=== PATIENT | female | born 1980 | race Caucasian/White ===

== ENCOUNTER 2017-12-18 10:23 | Emergency (ER) | payer SELFPAY ==
[2017-12-18 10:55] LABS: Bilirubin Negative (Negative); Blood, Urine Trace (Negative); Clarity Cloudy (Clear); Glucose, Urine (Dipstick) Negative (Negative); Leukocyte Trace (Negative); Nitrite Negative (Negative); Protein, Urine (Dipstick) Negative (Neg-Trace); Urobilinogen 0.2 mg/dL (0.2-1.0)
[2017-12-18 10:56] LABS: Pregnancy Test - Urine (BHCG) Negative (Negative); Pregu Control Background? CLEAR/WHITE (CLR/WHITE); Pregu Control Bar Appear? YES (CONTROL BAR); Specific Gravity 1.005 (1.002-1.036); Specific Gravity, Urine 1.005 (1.002-1.036)
[2017-12-18 11:01] LABS: Bacteria/HPF 1+ HPF (None Seen); RBC/HPF 0-3 HPF (0-3)
== END 2017-12-18 11:40 | disposition home or self-care (01) ==
LOC: MADERS 10:23
DX: K43.9 Ventral hernia without obstruction or gangrene (principal)
CPT/HCPCS: 81003; 81015; 81025; 87086; 99284

== ENCOUNTER 2018-05-29 18:09 | Emergency (ER) | payer SELFPAY | END 2018-05-29 19:12 | disposition home or self-care (01) | LOC: MADERS 18:09 | DX: R11.10 Vomiting, unspecified (principal); K02.9 Dental caries, unspecified | CPT/HCPCS: 99283 ==

== ENCOUNTER 2018-07-16 10:43 | Emergency (ER) | payer SELFPAY ==
--- NOTE | 2018-07-16 11:36 | RAD ---
Chest one view HISTORY: Chest pain. FINDINGS: Cardiac silhouette and pulmonary vasculature are unremarkable. Mediastinum is midline. No c onfluent airspace consolidation or evidence of pneumothorax. pvc monitor leads overlie the chest. IMPRESSION: No active cardiopulmonary abnormalities are demonstrated.
[2018-07-16 11:38] LABS: #Basophils 0.1 thou/uL (0.0-0.2); #Eosinphils 0.1 thou/uL (0.0-0.7); #Lymphocytes 1.9 thou/uL (1.20-3.40); #Monocytes 0.5 thou/uL (0.11-0.59); #Neutrophils 6.5 thou/uL (1.40-6.50); %Basophils 0.6 % (0.0-1.0); %Eosinophils 1.2 % (0.0-10.0); %Lymphocytes 20.9 % (21.0-51.0); %Monocytes 5.1 % (0.0-10.0); %Neutrophils 72.2 % (42.0-75.0); Hemoglobin 13.7 g/dL (12.0-16.0); Mean Corpuscular HGB CONC 32.3 g/dL (32.0-36.0); Mean Corpuscular Volume 89.7 fL (78.0-98.0); Platelet Count 296 thou/uL (130-400); RBC Distribution Width 11.9 % (11.5-14.5); Red Blood Cell (RBC) Count 4.74 mill/uL (4.20-5.40); White Blood Cell (WBC) Count 8.9 thou/uL (4.8-10.8)
[2018-07-16 12:04] LABS: ALT (SGPT) 12 U/L (8-55); AST (SGOT) 15 U/L (5-34); Albumin 4.4 g/dL (3.5-5.0); Alkaline Phosphatase 62 U/L (40-150); Anion Gap 11 mmol/L (10-20); BUN (Urea Nitrogen) 13 mg/dL (7.0-18.7); Bilirubin, Total 0.4 mg/dL (0.2-1.2); Calc. Creatinine Clearance 0 mL/min (70-130); Calcium 9.8 mg/dL (7.8-10.44); Carbon Dioxide 26 mmol/L (22-29); Chloride 108 mmol/L (98-107); Estimated GFR-MDRD 72; Globulin 2.6 g/dL (2.4-3.5); Glucose 81 mg/dL (70-105); Potassium 3.9 mmol/L (3.5-5.1); Sodium 141 mmol/L (136-145)
[2018-07-16] MEDS ORDERED: Aspirin Chewable 81 MG TAB ONE ×3 (12:17→12:22)
== END 2018-07-16 13:00 | disposition home or self-care (01) ==
LOC: MADERS 10:43
DX: R07.2 Precordial pain (principal); Z87.891 Personal history of nicotine dependence
CPT/HCPCS: 71045; 80053; 83880; 84484; 85025; 93005

== ENCOUNTER 2018-10-21 20:07 | Emergency (ER) | payer SELFPAY ==
[2018-10-21] MEDS ORDERED: Penicillin V Potassium 250 MG TAB ONE ×2 (20:33)
== END 2018-10-21 20:40 | disposition home or self-care (01) ==
LOC: MADERS 20:07
DX: K02.9 Dental caries, unspecified (principal); Z87.891 Personal history of nicotine dependence
CPT/HCPCS: 99282

== ENCOUNTER 2018-10-23 22:43 | Emergency (ER) | payer SELFPAY ==
[2018-10-23] MEDS ORDERED: Bupivacaine PF 0.5% 30 ML VIAL ONE (22:53)
== END 2018-10-23 23:15 | disposition home or self-care (01) ==
LOC: MADERS 22:43
DX: K04.7 Periapical abscess without sinus (principal); L03.211 Cellulitis of face; Z87.891 Personal history of nicotine dependence
CPT/HCPCS: 64400; S0020

== ENCOUNTER 2018-10-24 13:19 | Emergency (ER) | payer SELFPAY | END 2018-10-24 13:49 | disposition home or self-care (01) | LOC: MADERS 13:19 | DX: K04.7 Periapical abscess without sinus (principal); K02.9 Dental caries, unspecified; Z87.891 Personal history of nicotine dependence | CPT/HCPCS: 99281 ==

== ENCOUNTER 2019-01-11 19:30 | Emergency (ER) | payer SELFPAY ==
[2019-01-11] MEDS ORDERED: Acetaminophen 500 MG TAB ONE (19:58)
[2019-01-11] MEDS ORDERED: Ibuprofen 800 MG TAB ONE (19:58)
[2019-01-11] MEDS ORDERED: Penicillin V Potassium 250 MG TAB ONE (19:59)
== END 2019-01-11 20:09 | disposition home or self-care (01) ==
LOC: MADERS 19:30
DX: H66.93 Otitis media, unspecified, bilateral (principal); B97.4 Respiratory syncytial virus as the cause of diseases classified elsewhere
CPT/HCPCS: 99282

== ENCOUNTER 2019-04-25 14:08 | Emergency (ER) | payer SELFPAY | END 2019-04-25 15:25 | disposition home or self-care (01) | LOC: MADERS 14:08 | DX: K04.7 Periapical abscess without sinus (principal); K02.9 Dental caries, unspecified; F17.290 Nicotine dependence, other tobacco product, uncomplicated | CPT/HCPCS: 87804; 99283 ==

== ENCOUNTER 2021-08-25 14:25 | Emergency (ER) | payer SELFPAY | END 2021-08-25 15:20 | disposition home or self-care (01) | LOC: MADERS 14:25 | DX: M54.6 Pain in thoracic spine (principal); F17.290 Nicotine dependence, other tobacco product, uncomplicated | CPT/HCPCS: 93005 ==

== ENCOUNTER 2022-01-05 12:41 | Emergency (ER) | payer OTHER, SELFPAY ==
[2022-01-05] MEDS ORDERED: Dexamethasone 10 MG/ML VIAL ONE (14:04)
== END 2022-01-05 14:15 | disposition home or self-care (01) ==
LOC: MADERS 12:41
DX: S16.1XXA Strain of muscle, fascia and tendon at neck level, initial encounter (principal); F17.290 Nicotine dependence, other tobacco product, uncomplicated; Y04.0XXA Assault by unarmed brawl or fight, initial encounter
CPT/HCPCS: 96372; 99283; J1100

== ENCOUNTER 2022-05-25 15:17 | Emergency (ER) | payer OTHER ==
[2022-05-25] MEDS ORDERED: Albuterol 200 PUFF (6.7GM INHALER) ONE (16:08)
== END 2022-05-25 16:35 | disposition home or self-care (01) ==
LOC: MADERS 15:17
DX: H60.92 Unspecified otitis externa, left ear (principal); J20.9 Acute bronchitis, unspecified; H65.92 Unspecified nonsuppurative otitis media, left ear; Z87.891 Personal history of nicotine dependence
CPT/HCPCS: 71046

== ENCOUNTER 2023-10-10 07:50 | Emergency (ER) | payer OTHER, SELFPAY ==
[2023-10-10] MEDS ORDERED: Dexamethasone 10 MG/ML VIAL ONE (08:41)
[2023-10-10 09:07] LABS: Bilirubin Negative (Negative); Blood, Urine Moderate (Negative); Clarity Slightly Cloudy (Clear); Glucose, Urine (Dipstick) Negative (Negative); Ketone, Urine Negative (Negative); Leukocyte Negative (Negative); Nitrite Negative (Negative); Protein, Urine (Dipstick) Negative (Neg-Trace); Specific Gravity, Urine 1.025 (1.005-1.030); Urobilinogen 0.2 mg/dL (Less than 2)
[2023-10-10 09:11] LABS: Pregnancy Test - Urine (BHCG) Negative (Negative); Pregu Control Background? CLEAR/WHITE (CLR/WHITE); Pregu Control Bar Appear? YES (CONTROL BAR); Specific Gravity 1.025 (1.002-1.036)
[2023-10-10 09:32] LABS: Bacteria/HPF Rare-Few HPF (None Seen); CAUTI Indications for Culture Dysuria,urgency,freq; WBC/HPF 0-3 HPF (0-3)
[2023-10-10 09:33] LABS: Unclassified Crystals 2+ HPF (None Seen)
[2023-10-10 09:34] LABS: Urine Culture Reflex No No
== END 2023-10-10 09:15 | disposition home or self-care (01) ==
LOC: MADERS 07:50
DX: M54.6 Pain in thoracic spine (principal); F17.290 Nicotine dependence, other tobacco product, uncomplicated; F17.210 Nicotine dependence, cigarettes, uncomplicated
CPT/HCPCS: 81001; 81025; 99283; J1100

== ENCOUNTER 2025-01-23 11:41 | Emergency (ER) | payer OTHER ==
[2025-01-23] MEDS ORDERED: Ibuprofen 800 MG TAB ONE (12:17)
== END 2025-01-23 12:24 | disposition home or self-care (01) ==
LOC: MADERS 11:41
DX: S60.111A Contusion of right thumb with damage to nail, initial encounter (principal); F17.290 Nicotine dependence, other tobacco product, uncomplicated; W23.1XXA Caught, crushed, jammed, or pinched between stationary objects, initial encounter
CPT/HCPCS: 11740; 99283